=== PATIENT | male | born 1960 | race Hispanic/Latino ===

== ENCOUNTER 2017-10-31 15:13 | Emergency (ER) | payer SELFPAY ==
[2017-10-31 15:24] VITALS: BP 152/79; TEMP 97.6
[2017-10-31] MEDS ORDERED: Magnesium Citrate Oral SOL (300 ml) PO ONE (16:11)
[2017-10-31] MEDS ORDERED: Lidocaine 2% Jelly (Uro-Jet) TOP STA (16:11)
--- NOTE | 2017-10-31 16:14 | RAD ---
PROCEDURE: Radiographs of the chest and abdomen (obstructive series) HISTORY: constipation COMPARISON: None available. TECHNIQUE: AP radiograph of the chest, with upright and supine radiographs of the abdomen. FINDINGS: CHEST: Heart size appears within normal limits. Biapical pleural thickening and right apical probable scarring/fibrosis. Mild patchy left lung base opacities may reflect atelectasis/ infiltrates. No significant pleural effusion or definite pneumothorax. Please note that chest x-ray has limited sensitivity for the detection of pulmonary masses. ABDOMEN AND PELVIS: Nonspecific bowel gas pattern. No definite free air. Moderate constipation. No acute osseous abnormality is detected. IMPRESSION: Biapical pleural thickening and right apical probable scarring/fibrosis. Mild patchy left lung base opacities may reflect atelectasis/ infiltrates. Moderate constipation.
[2017-10-31] MEDS ORDERED: Magnesium Citrate Oral SOL (300 ml) ONE (16:22)
--- NOTE | 2017-10-31 16:22 | C.PDOC ---
History Of Present Illness 57 y/o male presents to the ED c/o constipation 2 weeks and small bowel movement this morning.The patient states that he was experiencing rectal pain and bleeding for the last 3 days. The patient denies nausea and vomiting. Time Seen by Provider: 10/31/17 15:48 Chief Complaint (Nursing): GI Problem History Per: Patient History/Exam Limitations: no limitations Onset/Duration Of Symptoms: Days Current Symptoms Are (Timing): Still Present Additional History Per: Patient Past Medical History Reviewed: Historical Data, Nursing Documentation, Vital Signs Vital Signs: Last Vital Signs Temp 97.6 F 10/31/17 15:22 Pulse 63 10/31/17 16:45 Resp 19 10/31/17 16:45 BP 152/79 H 10/31/17 15:22 Pulse Ox 99 10/31/17 19:00 Surgical History: No Surg Hx Family History: States: No Known Family Hx - Social History Hx Alcohol Use: No Hx Substance Use: No - Immunization History Hx Tetanus Toxoid Vaccination: No Hx Influenza Vaccination: No Review Of Systems Except As Marked, All Systems Reviewed And Found Negative. Constitutional: Negative for: Fever Gastrointestinal: Positive for: Constipation (for 2 weeks ), Rectal Pain (with bleeding for 3 days ). Negative for: Nausea, Vomiting Skin: Negative for: Rash Physical Exam - Physical Exam Appears: Non-toxic, Other (mildly uncomfortable ) Skin: Warm, Dry Head: Atraumatic, Normacephalic Eye(s): bilateral: Normal Inspection Oral Mucosa: Moist Throat: Normal Neck: Supple Chest: Symmetrical Cardiovascular: Rhythm Regular Respiratory: Normal Breath Sounds, No Rales, No Rhonchi Gastrointestinal/Abdominal: Soft, No Tenderness, No Guarding, No Rebound Rectal: Hemorrhoids (small at 9am), Other (non thrombosed and no rectal bleeding ) Back: No CVA Tenderness Extremity: No Tenderness, Capillary Refill (2<sec. ) Neurological/Psych: Oriented x3 Gait: Steady ED Course And Treatment O2 Sat by Pulse Oximetry: 99 (RA) - Radiology CXR: Viewed By Me - Other Rad abd obstructive series x-ray X-Ray: Viewed By Me Interpretation: PROCEDURE: Radiographs of the chest and abdomen (obstructive series). HISTORY: constipation. COMPARISON: None available. TECHNIQUE: AP radiograph of the chest, with upright and supine radiographs of the abdomen. FINDINGS: CHEST: Heart size appears within normal limits. Biapical pleural thickening and right apical probable scarring/fibrosis. Mild patchy left lung base opacities may reflect atelectasis/ infiltrates. No significant pleural effusion or definite pneumothorax. Please note that chest x-ray has limited sensitivity for the detection of pulmonary masses. ABDOMEN AND PELVIS: Nonspecific bowel gas pattern. No definite free air. Moderate constipation. No acute osseous abnormality is detected. IMPRESSION: Biapical pleural thickening and right apical probable scarring/fibrosis. Mild patchy left lung base opacities may reflect atelectasis/ infiltrates. Moderate constipation. Progress Note: Abd obstructive series x-ray was performed. The patient is afebrile. Upon reassessment, the patient was given medication for the constipation and hemorrhoid for home. The patient is advised to have a 1-2 day follow up with his PMD for further evaluation. Disposition Counseled Patient/Family Regarding: Diagnosis, Need For Followup, Rx Given - Disposition Referrals: Bull Thakur MD [Staff Provider] - Disposition: HOME/ ROUTINE Disposition Time: 16:30 Condition: STABLE Additional Instructions: BEBER ABUNDANTE AGUA INCREMENTA LA FIBRA EN DARDEN DIETA USE MEDICAMENTOS SEGN LO INDICADO REGRESE AL SANDY DE EMERGENCIA SI LOS SNTOMAS EMPEORAN Prescriptions: Docusate [Colace] 100 mg PO DAILY #30 cap Hydrocortisone 2.5% (Rectal) [Anusol-HC] 1 applic NE BID #1 tube Magnesium Citrate [Citrate of Mag] 300 ml PO ONCE PRN #1 bottle PRN Reason: Constipation Instructions: Constipation (DC), Hemorrhoids (ED), Sitz Bath (GEN) Forms: [employer] [employer] (Spanish) Print Language: ITALIAN - POA Present On Arrival: None - Clinical Impression Clinical Impression: Constipation, Hemorrhoid - Scribe Statement The provider has reviewed the documentation as recorded by the Scribe Nisha Salazar
[2017-10-31 16:46] VITALS: PULSE 63; RESP 19
[2017-10-31 18:50] VITALS: O2SAT 99
== END 2017-10-31 16:45 | disposition home or self-care (01) ==
LOC: C.ER 15:13
DX: K59.00 Constipation, unspecified (principal); K64.9 Unspecified hemorrhoids

== ENCOUNTER 2018-06-23 08:11 | Emergency (ER) | payer OTHER ==
[2018-06-23 08:19] VITALS: BMI 25.0
[2018-06-23 08:22] VITALS: TEMP 98.7
[2018-06-23 09:29] LABS: BASO % 0.5 % (0.0-2.0); EOS % 0.7 % (0.0-4.0); HEMOGLOBIN 13.4 g/dL (12.0-18.0); LYMPH # 1.7 K/uL (1.0-4.3); LYMPH % 25.6 % (20.0-40.0); MEAN CELL VOLUME 91.6 fL (80.0-94.0); MEAN CORPUSCULAR HEMOGLOBIN 31.5 pg (27.0-31.0); MEAN CORPUSCULAR HGB CONC 34.4 g/dL (33.0-37.0); MEAN PLATELET VOLUME 8.5 fL (7.2-11.7); MONO # 0.5 K/uL (0.0-0.8); MONO % 6.8 % (0.0-10.0); NEUT # 4.4 K/uL (1.8-7.0); NEUT % 66.4 % (50.0-75.0); RBC 4.26 Mil/uL (4.40-5.90); RED CELL DISTRIBUTION WIDTH 12.7 % (11.5-14.5); WHITE BLOOD COUNT 6.7 K/uL (4.8-10.8)
[2018-06-23 09:40] LABS: ALB/GLOB RATIO 1.2 (1.0-2.1); ALBUMIN 4.1 g/dL (3.5-5.0); ALT/SGPT 30 U/L (21-72); AST/SGOT 30 U/L (17-59); BLOOD UREA NITROGEN 11 mg/dL (9-20); GFR NON-AFRICAN AMERICAN > 60
--- NOTE | 2018-06-23 09:43 | C.PDOC ---
History Of Present Illness 58-year-old male, presents to the emergency department with complaints of neck pain x15 years that worsened one week ago. Pt is also complaining of chest pain that started 3 days ago, radiating to the back. Patient denies nausea/vomiting, shortness of breath, abdominal pain or any other associated symptoms. No other complaints at this time. Time Seen by Provider: 06/23/18 08:32 Chief Complaint (Nursing): Chest Pain History Per: Patient History/Exam Limitations: no limitations Current Symptoms Are (Timing): Still Present Severity: Moderate Past Medical History Reviewed: Historical Data, Nursing Documentation, Vital Signs Vital Signs: Last Vital Signs Temp 98.7 F 06/23/18 08:18 Pulse 60 06/23/18 11:56 Resp 16 06/23/18 11:56 BP 129/73 06/23/18 11:56 Pulse Ox 98 06/23/18 11:56 Family History: States: No Known Family Hx - Social History Hx Alcohol Use: No Hx Substance Use: No - Immunization History Hx Tetanus Toxoid Vaccination: No Hx Influenza Vaccination: No Review Of Systems Constitutional: Negative for: Fever Cardiovascular: Positive for: Chest Pain Gastrointestinal: Negative for: Vomiting Musculoskeletal: Positive for: Neck Pain, Back Pain Skin: Negative for: Rash Neurological: Negative for: Weakness, Numbness, Headache, Dizziness Physical Exam - Physical Exam Appears: Non-toxic, No Acute Distress Skin: Normal Color, Warm, Dry, No Rash Head: Atraumatic, Normacephalic Eye(s): bilateral: Normal Inspection Nose: Normal Oral Mucosa: Moist Lips: Normal Appearing Neck: Normal ROM, Paracervical Tenderness Chest: Symmetrical, Tenderness (reproducible chest wall) Cardiovascular: Rhythm Regular, No Murmur Respiratory: Normal Breath Sounds, No Accessory Muscle Use Gastrointestinal/Abdominal: Soft, No Tenderness, No Guarding, No Rebound Extremity: Normal ROM, No Deformity, No Swelling Neurological/Psych: Oriented x3, Normal Speech ED Course And Treatment - Laboratory Results Result Diagrams: 06/23/18 09:23 06/23/18 09:23 O2 Sat by Pulse Oximetry: 99 Pulse Ox Interpretation: Normal (RA) Medical Decision Making Medical Decision Making: Plan: * EKG * Bloodwork * Chest X-Ray * Toradol * Xr Spine * UA * Reassess and Disposition Pts Heart score is 1 1400 - case s/o to DR. Doe at 1400 pending repeat troponin, reevaluation and disposition Disposition - Disposition Disposition Time: 14:00 Condition: STABLE Forms: [facility] (Pashto) - Clinical Impression Clinical Impression: Chest pain - Scribe Statement The provider has reviewed the documentation as recorded by the Scribe (Pari Holbrook) All medical record entries made by the Scribe were at my direction and personally dictated by me. I have reviewed the chart and agree that the record accurately reflects my personal performance of the history, physical exam, medical decision making, and the department course for this patient. I have also personally directed, reviewed, and agree with the discharge instructions and disposition. Physician Patient Turnover Patient Signed Over To: Re Doe
[2018-06-23 09:51] LABS: B-TYPE NATRIURETIC PEPTIDE 38.1 pg/mL (0-900)
--- NOTE | 2018-06-23 09:53 | RAD ---
Date of service: 06/23/2018 HISTORY: SOB COMPARISON: No prior. TECHNIQUE: Chest PA and lateral FINDINGS: LUNGS: Fibrotic changes in the medial right apex and borderline at the left apex. No acute infiltrate bilaterally. Mild right-sided volume loss. PLEURA: No significant pleural effusion identified. No pneumothorax apparent. CARDIOVASCULAR: Normal. OSSEOUS STRUCTURES: No significant abnormalities. VISUALIZED UPPER ABDOMEN: Normal. OTHER FINDINGS: None. IMPRESSION: No acute cardiopulmonary disease. Fibrotic changes in the right pulmonary apex and minimally at the left.
--- NOTE | 2018-06-23 09:54 | RAD ---
Date of service: 06/23/2018 PROCEDURE: Cervical Spine Radiographs. HISTORY: Pain. COMPARISON: None. FINDINGS: BONES: Reversal cervical curvature is mild. There is no fracture or spondylolisthesis appreciable. Multilevel spondylosis appears [id number] severity in primarily affects the mid to inferior cervical spine. Multilevel facet joint degenerative arthropathy noted as well. The odontoid process appears intact DISC SPACES: Normal. SOFT TISSUES: Normal. No prevertebral soft tissue swelling. OTHER FINDINGS: None. IMPRESSION: Multilevel cervical spondylosis at the mid to inferior cervical spine is mild as well as multilevel facet joint degenerative arthropathy. Subtle reversal cervical curvature.
[2018-06-23 10:15] LABS: URINE BILIRUBIN NEGATIVE (NEGATIVE); URINE BLOOD NEGATIVE (NEGATIVE); URINE CLARITY Clear (Clear); URINE COLOR Straw (YELLOW); URINE GLUCOSE (UA) NORMAL (Normal); URINE LEUKOCYTE ESTERASE NEG Leu/uL (Negative); URINE PROTEIN NEGATIVE (NEGATIVE); URINE UROBILINOGEN NORMAL mg/dL (0.2-1.0)
[2018-06-23 14:51] VITALS: BP 127/78; PULSE 55; RESP 21; O2SAT 96
--- NOTE | 2018-06-24 14:37 | CARD ---
APPROVED REPORT Date of service: 06/23/2018 EKG Measurement Heart [id number] <Conclusion> Normal sinus rhythm Incomplete right bundle branch block Borderline ECG
== END 2018-06-23 14:50 | disposition home or self-care (01) ==
LOC: C.ER 08:11
DX: R07.9 Chest pain, unspecified (principal)
CPT/HCPCS: 71046; 72040; 80053; 81001; 82550; 83880; 84484; 85025; 93005; 96374; 99285; J1885

== ENCOUNTER 2018-10-19 12:16 | Emergency (ER) | payer SELFPAY ==
[2018-10-19 12:16] VITALS: BMI 25.0
--- NOTE | 2018-10-19 13:12 | C.PDOC ---
History Of Present Illness 58 y/o M c no known PMHx p/w chest pain and neck pain x 1 week. Patient has been to this ED in the past for the same symptoms. States that neck pain and chest pain has been constant for 1 week. Neck pain worse with movement without s tiffness or fever or injury. Chest pain is pressure like on L sided chest in focal area that is worse with palpation. Denies dyspnea, vomiting. Patient also notes lower abdominal pain that he informed his PMD about 1 week ago and was told is likely gas. States he has hemorrhoidal bleeding from time to time. Time Seen by Provider: 10/19/18 13:01 Chief Complaint (Nursing): Chest Pain Past Medical History Vital Signs: Last Vital Signs Temp 98.5 F 10/19/18 12:26 Pulse 68 10/19/18 12:26 Resp 18 10/19/18 12:26 BP 158/77 H 10/19/18 12:26 Pulse Ox 97 10/19/18 12:26 Family History: States: No Known Family Hx - Social History Hx Alcohol Use: No Hx Substance Use: No - Immunization History Hx Tetanus Toxoid Vaccination: No Hx Influenza Vaccination: No Review Of Systems Except As Marked, All Systems Reviewed And Found Negative. Constitutional: Negative for: Fever Respiratory: Negative for: Shortness of Breath Physical Exam - Physical Exam Additional Physical Exam Comments: Constitutional: No acute distress. Head: Normocephalic. Atraumatic. Eyes: PERRL. ENT: Moist mucous membranes. Neck: Supple. No cervical midline tenderness. Cardiovascular: Regular rate. Radial pulse 2+ bilaterally. Chest: Reproducible chest tenderness. Respiratory: Clear to auscultation bilaterally. GI: Soft. Nontender. Nondistended. Back: No CVA tenderness. No midline tenderness. Musculoskeletal: No tenderness or swelling of extremities. Skin: No rash. Neurologic: Alert, no focal deficit. ED Course And Treatment - Laboratory Results Result Diagrams: 10/19/18 13:37 10/19/18 13:37 O2 Sat by Pulse Oximetry: 97 (RA) Pulse Ox Interpretation: Normal Medical Decision Making Medical Decision Making: Plan: EKG Chemistry CBC CXR Toradol 30mg IVP Zofran 8mg IVP Urinalysis EKG NSR 65 bpm, no ST/T wave changes IMPRESSION: No focal consolidation. Mild scarring/fibrosis within the right greater than left lung apex. Patient in no distress. Pain improved after toradol. Enzymes negative in this pain of 1 week duration. No tachycardia/hypotension/anemia. Discharged home, f/u PMD, return to ED for worsening pain, fever, vomiting, dyspnea, or any other problem. Disposition - Disposition Referrals: Bull Thakur MD [Staff Provider] - Disposition: HOME/ ROUTINE Disposition Time: 14:25 Condition: STABLE Instructions: Costochondritis Forms: [employer] (Czech) - Clinical Impression Clinical Impression: Chest wall pain - Scribe Statement The provider has reviewed the documentation as recorded by the Scribe (Fortino Marieqvi) Provider Attestation: All medical record entries made by the Scribe were at my direction and p ersonally dictated by me. I have reviewed the chart and agree that the record accurately reflects my personal performance of the history, physical exam, medical decision making, and the department course for this patient. I have also personally directed, reviewed, and agree with the discharge instructions and disposition.
[2018-10-19 13:40] LABS: BASO % 0.6 % (0.0-2.0); EOS % 0.2 % (0.0-4.0); HEMOGLOBIN 14.1 g/dL (12.0-18.0); LYMPH # 1.5 K/uL (1.0-4.3); LYMPH % 25.8 % (20.0-40.0); MEAN CELL VOLUME 93.2 fL (80.0-94.0); MEAN CORPUSCULAR HEMOGLOBIN 31.5 pg (27.0-31.0); MEAN CORPUSCULAR HGB CONC 33.8 g/dL (33.0-37.0); MEAN PLATELET VOLUME 9.8 fL (7.2-11.7); MONO # 0.3 K/uL (0.0-0.8); MONO % 4.9 % (0.0-10.0); NEUT % 68.5 % (50.0-75.0); NRBC % 0.1 % (0.0-2.0); RBC 4.49 Mil/uL (4.40-5.90); RED CELL DISTRIBUTION WIDTH 13.1 % (11.5-14.5); WHITE BLOOD COUNT 5.9 K/uL (4.8-10.8)
[2018-10-19 13:43] LABS: URINE BILIRUBIN NEGATIVE (NEGATIVE); URINE BLOOD NEGATIVE (NEGATIVE); URINE CLARITY Clear (Clear); URINE COLOR Colorless (YELLOW); URINE GLUCOSE (UA) NORMAL (Normal); URINE LEUKOCYTE ESTERASE NEG Leu/uL (Negative); URINE PROTEIN NEGATIVE (NEGATIVE); URINE UROBILINOGEN NORMAL mg/dL (0.2-1.0)
[2018-10-19 14:00] LABS: ALB/GLOB RATIO 1.4 (1.0-2.1); ALBUMIN 4.6 g/dL (3.5-5.0); ALT/SGPT 24 U/L (21-72); AST/SGOT 35 U/L (17-59); BLOOD UREA NITROGEN 10 mg/dL (9-20); CALCIUM 8.9 mg/dl (8.6-10.4); GFR NON-AFRICAN AMERICAN > 60; LIPASE 50 U/L (23-300)
[2018-10-19 14:12] LABS: CK-MB 1.54 ng/mL (0.0-3.38)
--- NOTE | 2018-10-19 14:24 | RAD ---
HISTORY: chest pain COMPARISON: Chest x-ray performed 06/23/18 TECHNIQUE: Chest, one view. FINDINGS: LUNGS: No focal consolidation. Mild scarring/fibrosis within the right greater than left lung apex. Please note that chest x-ray has limited sensitivity for the detection of pulmonary masses. PLEURA: No significant pleural effusion identified. No definite pneumothorax . CARDIOVASCULAR: Heart size appears within normal limits. No significant atherosclerotic calcification present. OSSEOUS STRUCTURES: No acute osseous abnormality identified. VISUALIZED UPPER ABDOMEN: Unremarkable. OTHER FINDINGS: None. IMPRESSION: No focal consolidation. Mild scarring/fibrosis within the right greater than left lung apex.
[2018-10-19 15:19] VITALS: BP 119/72; PULSE 63; RESP 20; TEMP 98; O2SAT 98
--- NOTE | 2018-10-20 18:24 | CARD ---
APPROVED REPORT Date of service: 10/19/2018 EKG Measurement Heart [id number] <Conclusion> Normal sinus rhythm Normal ECG
== END 2018-10-19 15:42 | disposition home or self-care (01) ==
LOC: C.ER 12:16
DX: R07.89 Other chest pain (principal)
CPT/HCPCS: 71045; 80053; 81001; 82550; 82553; 83690; 84484; 85025; 93005; 96374; 96375; 99285; J1885; J2405